=== PATIENT | female | born 1990 | race Caucasian/White ===

== ENCOUNTER 2018-01-19 16:43 | Emergency (ER) | payer MEDICAID, OTHER ==
--- NOTE | 2018-01-19 16:55 | ED Physician Documentation ---
General Adult - HISTORIAN Historian: patient - HPI Stated Complaint: right lower quad abdominal pain Chief Complaint: Abdominal Pain Onset: hours Timing: pain intermittent Severity: mild Further Comments: yes (she states her period was two weeks ago. She woke this am with right lower quad abdominal pain that is almost pelvic. Denies any vaginal discharge. No pain with sex. No new sexual partners. The pain is cramping in nature but she states she has to bend over and take a deep breath when it happens and she gets a wave of nausea. She has no fever. No sick contacts. No diarrhea or vomiting) Last known Well Code/Unknown Code: Unknown - ROS CONST: no problems CVS/RESP: denies: chest pain, shortness of breath GI/: abdominal pain MS/SKIN/LYMPH: none NEURO/PSYCH: denies: headache, fainting, dizziness - PAST HX Past History: other (none ) Surgeries/Procedures: cholecystectomy, other (tubal, appy ) Immunizations: UTD Allergies/Adverse Reactions: Allergies Allergy/AdvReac Type Severity Reaction Status Date / Time No Known Allergies Allergy Unverified 01/19/18 17:59 Home Medications: Ambulatory Orders Medication Instructions Recorded NK 01/19/18 - SOCIAL HX Smoking History: cigarettes Alcohol Use: none Drug Use: none - FAMILY HX Family History: No - REVIEWED ASSESSMENTS Nursing Assessment Reviewed: Yes Vitals Reviewed: Yes Progress - Progress Progress: 1800: results discussed and plan. she is agreeable DG ED Results Lab/Radiology - Radiology Radiology Impressions: CT abdomen and pelvis with intravenous contrast HISTORY Right lower quadrant pain. TECHNIQUE Images through the abdomen and pelvis were obtained following intravenous contrast administration. FINDINGS The lung bases are clear. The patient is status post cholecystectomy. The liver, spleen, pancreas, kidneys and adrenal glands are normal. There is no hydronephrosis, hydroureter, free intraperitoneal air or fluid. There is no bowel obstruction. The appendix is not seen. The uterus is grossly normal. The aorta enhances normally. IMPRESSION Normal. Electronically signed on Jan 19, 2018 5:54:51 PM CDT by: Juan Carlos Claros General Adult Physical Exam - PHYSICAL EXAM GENERAL APPEARANCE: no distress EENT: eye inspection normal NECK: normal inspection RESPIRATORY: no resp distress, chest non-tender, breath sounds normal CVS: reg rate & rhythm, heart sounds normal, equal pulses, no murmur ABDOMEN: soft, normal bowel sounds, tenderness (with palpation RLQ/right pelvic. No bladder tenderness ) BACK: normal inspection SKIN: warm/dry, normal color EXTREMITIES: non-tender, normal range of motion, no evidence of injury, no edema NEURO: oriented X3 Discharge Clincal Impression: Abdominal pain Qualifiers: Abdominal location: right lower quadrant Qualified Code(s): R10.31 - Right lower quadrant pain Referrals: Primary Doctor,No [Primary Care Provider] - 2 Days Comments: 1. Increase fluids 2. Zofran 8 mg take 1 by mouth every 8 hours as needed for nausea 3. cyclobenzaprine 10 mg take 1 by mouth every 12 hours as needed for pain 4. Ibuprofen 800 mg take 1 by mouth every 12 hours as needed for pain 5. Follow up with PCP /OBGYN for continued symptoms 6. Return to ER for any concerns Condition: Stable Disposition: 01 HOME, SELF-CARE Decision to Admit: NO Date of Decison to Admit: 01/19/18 Decision Time: 18:07
[2018-01-19] MEDS ORDERED: 0.9 % SODIUM CHLORIDE 1,000 ML IV ONE (17:14)
[2018-01-19] MEDS ORDERED: 0.9 % SODIUM CHLORIDE 1,000 ML IV SCH (17:30)
[2018-01-19 17:38] LABS: eGFR (African) > 60; eGFR (Non-African) > 60
[2018-01-19 17:39] LABS: BASOPHILS % 0.4 (0.0-1.5); EOSINOPHILS % 2.3 % (0.0-6.8); MEAN CORPUSCULAR VOLUME 80.7 fl (80.0-100.0); MONOCYTES % 4.4 % (0.0-11.0); NEUTROPHILS # 6.7 # k/uL (1.4-7.7)
[2018-01-19] MEDS ORDERED: KETOROLAC TROMETHAMINE 30 MG/1ML VIAL IVP ONE (17:58)
[2018-01-19 18:16] VITALS: BP 108/68
--- NOTE | 2018-01-19 18:52 | Diagnostic Imaging Report ---
BILL DO [facility] [address] [facility] [address] [place], [place]. [address] Report Submission Date: Jan 19, 2018 5:54:51 PM CDT Patient Study Name: SANKET HENRY Date: Jan 19, 2018 5:26:51 PM CDT Modality Type: CT Gender: F Description: CT ABD W/ CONTRAST : 89 Institution: [facility] Physician: BILL DO CT abdomen and pelvis with intravenous contrast HISTORY Right lower quadrant pain. TECHNIQUE Images through the abdomen and pelvis were obtained following intravenous contrast administration. FINDINGS The lung bases are clear. The patient is status post cholecystectomy. The liver, spleen, pancreas, kidneys and adrenal glands are normal. There is no hydronephrosis, hydroureter, free intraperitoneal air or fluid. There is no bowel obstruction. The appendix is not seen. The uterus is grossly normal. The aorta enhances normally. IMPRESSION Normal. Electronically signed on Jan 19, 2018 5:54:51 PM CDT by: Juan Carlos OHARA
[2018-01-20 06:42] LABS: APPEARANCE,URINE CLEAR (CLEAR); COLOR,URINE YELLOW (YELLOW); OCCULT BLOOD,URINE NEGATIVE (NEGATIVE); UROBILINOGEN URINE 0.2 Eu (0.2-1.0)
== END 2018-01-19 18:14 | disposition home or self-care (01) ==
LOC: ED 16:43
DX: R10.31 Right lower quadrant pain (principal)
CPT/HCPCS: 74177; 80053; 83690; 85025; J1885; J7030; 81002; 96365; 96375; Q9967; S1016